=== PATIENT | male | born 1990 | race Caucasian/White ===

== ENCOUNTER 2021-01-12 12:24 | Emergency (ER) | payer MEDICAID ==
[~2021-01-12] VITALS: Ht 175.3 cm; Wt 72.7 kg
[2021-01-12 12:36] VITALS: BP 128/68
== END 2021-01-12 13:27 | disposition home or self-care (01) ==
LOC: ER 12:25
DX: F10.10 Alcohol abuse, uncomplicated (principal); Y90.9 Presence of alcohol in blood, level not specified
CPT/HCPCS: 99281

== ENCOUNTER 2021-05-06 10:41 | Emergency (ER) | payer MEDICAID ==
[~2021-05-06] VITALS: Ht 175.3 cm; Wt 72.7 kg
[2021-05-06 10:57] VITALS: BP 134/70
[2021-05-06] MEDS ORDERED: IBUP-1986 PO ×2 (11:48→12:32)
== END 2021-05-06 12:34 | disposition home or self-care (01) ==
LOC: ER 10:41
DX: S60.221A Contusion of right hand, initial encounter (principal); F17.210 Nicotine dependence, cigarettes, uncomplicated; F12.10 Cannabis abuse, uncomplicated; Z87.81 Personal history of (healed) traumatic fracture; X58.XXXA Exposure to other specified factors, initial encounter; Y93.89 Activity, other specified; Y92.89 Other specified places as the place of occurrence of the external cause; Y99.8 Other external cause status
CPT/HCPCS: 73130; 99283